=== PATIENT | female | born 1995 | race Caucasian/White ===

== ENCOUNTER 2024-05-08 23:32 | Emergency (ER) | payer BC, SELFPAY ==
[2024-05-08 23:33] VITALS: BP 141/90
[2024-05-08 23:55] LABS: % Basophils 0.2 % (0-2); % Eosinophils 0.5 % (0-6); % Immature Granulocytes 0.4 % (0-0.5); % Lymphocytes 18.1 % (20.5-51.1); % Monocytes 6.7 % (1.7-9.3); % Neutrophils 74.1 % (42.2-75.2); Absolute Eosinophils 0.1 10^3/uL (0-0.7); Absolute Immature Granulocytes 0.1 10^3/uL (0-0.05); Absolute Lymphocytes 2.3 10^3/uL (1.2-3.4); Absolute Monocytes 0.9 10^3/uL (0.1-0.6); Absolute Neutrophils 9.5 10^3/uL (1.4-6.5); Hematocrit 44.9 % (37.0-47.0); Hemoglobin 14.9 g/dL (12.0-16.0); Mean Corp Hgb Conc. 33.2 g/dL (33.0-37.0); Mean Corpuscular Hgb 28.8 pg (27.0-31.0); Mean Corpuscular Volume 86.8 fL (81.0-99.0); Mean Platelet Volume 10.2 fL (7.4-10.4); Nucleated Red Blood Cells % 0 %; Platelet Count 335 10^3/uL (130-400); Red Blood Cell Count 5.17 10^6/uL (4.20-5.40); Red Cell Dist. Width 13.7 % (11.5-14.5); White Blood Cell Count 12.9 10^3/uL (4.8-10.8)
[2024-05-09 00:06] LABS: INR 1.08; PT 14.5 Sec (11.4-14.6)
[2024-05-09 00:18] LABS: ALT (SGPT) 19 U/L (0-35); AST (SGOT) 21 U/L (14-36); Albumin 5.3 g/dl (3.5-5.0); Alkaline Phosphatase 76 U/L (38-126); Blood Urea Nitrogen 9 mg/dl (7-17); Calcium 9.4 mg/dl (8.4-10.2); Chloride 99 mmol/L (98-107); Glucose 98 mg/dl (70-99); Potassium 3.8 mmol/L (3.5-5.1); Sodium 138 mmol/L (135-145); Total Bilirubin 1.3 mg/dl (0.2-1.3); Total Protein 7.8 g/dl (6.3-8.2); eGFR > 60.00
[2024-05-09 00:29] LABS: Carbon Dioxide 24 mmol/L (22-30)
--- NOTE | 2024-05-09 02:11 | ED.GENMED ---
History of Present Illness
General
Chief Complaint: Chest Problem
Time Seen by Provider: 05/09/24 01:49
History of Present Illness
History of Present Illness:
29-year-old female with prior history of PE presenting to the emergency department for dizzy spells. For the past month she has had on and off dizzy spells. She is 5 months. She has been following with her primary care doctor, had
outpatient blood work completed, which was overall normal including normal TSH and hormonal testing. However, had a D-dimer that was slightly elevated, so was advised to come to the hospital for further evaluation. Patient notes prior episode of
PE was in 2019 after she had extreme weight gain, was vaping, and was on Depo so unsure if it was provoked. She finished a course of Xarelto and during her she was on Lovenox, which was stopped 6 weeks . During her previous PE,
did have difficulty breathing. Patient currently denying any difficulty breathing or chest pain. Does note some pain to her left lower extremity. Does admit to drinking energy drinks, has had decreased sleep given her status. Denies
additional acute medical complaints.
Phy Exam
Physical Exam
Physical Exam:
General: Well-appearing, no clinical signs of dehydration, nontoxic and in no acute distress
HEENT: protecting airway
Neck: appears supple
CV: Normal heart rate, regular rhythm, no evidence of cyanosis
Resp: No accessory muscle use, no increased work of breathing, lungs clear to auscultation bilaterally
Abd: No distention
Extremities: No deformities, no swelling, no erythema. Mild focal tenderness to the left calf, overlying small bruise
Neuro: alert, no focal neurologic deficit
: deferred
Rectal: deferred
Psych: Normal affect
Skin: Intact
Course
Orders/Labs/Results
Orders:
Orders
05/08/24 23:41
Test Result ONCE
05/08/24 23:42
Complete Blood Count/With Diff Urgent
Comprehensive Metabolic Panel Urgent
HCG, Serum Qualitative Screen Urgent
05/08/24 23:45
Electrocardiogram (*1) Urgent
Reason for Study: Other
Other Reason for Exam: elevated d-dimer
05/08/24 23:46
EKG- Treatment ONCE
05/08/24 23:47
PT/INR [Prothrombin Time] Urgent
05/09/24 00:45
CT Chest PE Study Urgent
Reason For Exam: outpt elevated dimer, hx pe
Abnormal Lab Results
05/08/24
23:42
WBC 12.9 H 10^3/uL
(4.8-10.8)
Abs Immat Gran (auto) 0.1 H 10^3/uL
(0-0.05)
Absolute Neuts (auto) 9.5 H 10^3/uL
(1.4-6.5)
Absolute Monos (auto) 0.9 H 10^3/uL
(0.1-0.6)
Lymphocytes % 18.1 L %
(20.5-51.1)
Albumin 5.3 H g/dl
(3.5-5.0)
05/08/24 23:42
05/08/24 23:42
Vital Signs
Initial and Last Documented VS:
Initial Vital Signs
Temp Pulse Resp BP Pulse Ox
98.9 F 83 16 141/90 98
05/08/24 23:33 05/08/24 23:33 05/08/24 23:33 05/08/24 23:33 05/08/24 23:33
Last Documented Vital Signs
Temp Pulse Resp BP Pulse Ox
98.9 F 83 16 141/90 98
05/08/24 23:33 05/08/24 23:33 05/08/24 23:33 05/08/24 23:33 05/08/24 23:33
MDM/Problems Addressed
MDM/Problems Addressed:
29-year-old female with prior history of PE presenting for outpatient elevated D-dimer test. Vital signs on arrival are normal.
Exam patient is well-appearing, no acute distress or discomfort. Patient currently denying any acute complaints. She denies any chest pain or difficulty breathing. She notes that she had blood work checked due to her prior history of PE and dizzy
spells. Ultimately low suspicion for PE in the absence of chest pain or shortness of breath, however given prior history, high risk, so plan for CT PE imaging. EKG is nonischemic without concern for ACS. No arrhythmia. Patient had labs obtained
prior to my assessment, no anemia, normal electrolyte panel. No concern for DVT at this time, symmetric appearance of bilateral legs without swelling, no erythema, no warmth, no neurovascular compromise. Do suspect component of lack of sleep with
energy drinks contributing to her dizzy spells. Patient is also , notes that she has had a lot of stress anxiety.
02:20 -CT PE is negative. Patient remains hemodynamically stable. At this time feel stable for discharge with continued outpatient primary care follow-up. Return precautions discussed and patient verbalized understanding
*EKG
Interpreted by ED Provider?: Yes
EKG Intrepretation Date: 05/09/24
EKG Intrepretation Time: 02:16
Interpretation: normal
Comparison EKG: no comparison EKG present
Heart Rate: 79
Rate: normal
Rhythm: sinus
[place]: normal axis
Interval: normal interval
QRS Pattern: normal QRS
Ischemia: no ischemia
*Critical Care Note
Total Time (30-74mins, 75-104mins- exclusive of procedures): Not Applicable
ED Attending Note
-
Portions of this chart may have been created with voice recognition software.� Occasional wrong word or��sound alike� substitutions may have occurred due to the inherent limitations of voice recognition software.
Discharge Plan
Interventions
Interventions:
*Risk Screen - Suicide Last Done: 05/08/24 23:33
*General Assessment Last Done: 05/08/24 23:33
*Neglect/Abuse Screening Last Done: 05/08/24 23:33
*ED COVID-19 Vaccine History Last Done: 05/08/24 23:33
Discharge Date and Time
Print Language: [place]
[2024-05-09 04:16] LABS: HCG, Serum Qualitative Screen Negative
== END 2024-05-09 02:49 | disposition home or self-care (01) ==
LOC: EMR 23:32
PROVIDERS: Student in an Organized Health Care Education/Training Program; EMERGENCY PHYSICIAN Student in an Organized Health Care Education/Training Program; FAMILY PHYSICIAN Student in an Organized Health Care Education/Training Program
DX: R42 Dizziness and giddiness (principal); Z86.711 Personal history of pulmonary embolism
CPT/HCPCS: 99283; 71275; 80053; 84703; 85025; 85610; 93005; Q9967